=== PATIENT | female | born 1995 | race Two or more races ===

== ENCOUNTER 2016-12-22 14:11 | Emergency (ER) | payer OTHER ==
[2016-12-22 14:26] VITALS: BP 110/66; PULSE 99; RESP 18; TEMP 98.6; O2SAT 99
[2016-12-22] MEDS ORDERED: predniSONE 20 MG TAB PO ONE (14:39)
[2016-12-22] MEDS ORDERED: diphenhydrAMINE 25 MG CAP PO ONE (14:39)
[2016-12-22] MEDS ORDERED: FAMOTIDINE 20 MG TAB PO ONE (14:39)
--- NOTE | 2016-12-22 14:43 | EDPHY ---
H & P Stated Complaint: possible allergic rxn starting at approx 1400, no known cause Time Seen by Provider: 12/22/16 14:35 HPI/ROS: CHIEF COMPLAINT: Sudden onset diffuse itching HISTORY OF PRESENT ILLNESS: 21-year-old immunocompetent female female arrives via private vehicle complaining of sudden onset highly pruritic rash. No airway involvement, no dyspnea, dysphagia no odynophagia, no chest pain, no abdominal pain, no nausea, no vomiting. PRIMARY CARE PROVIDER: REVIEW OF SYSTEMS: A ten point review of systems was performed and is negative with the exception of the items mentioned in the HPI PAST MEDICAL & SURGICAL HISTORY: No pertinent medical or surgical history SOCIAL HISTORY: nonsmoker PHYSICAL EXAM (Prior to examination, patient consented to physical exam, hands were washed and my usual and customary physical exam procedures followed) 1) GENERAL: Well-developed, well-nourished, alert and oriented. Appears to be in no acute distress. 2) HEAD: Normocephalic, atraumatic 3) HEENT: Pupils equal, round, reactive to light bilaterally. Sclera anicteric. Nasopharynx, oropharynx, clear, no lesions. No intraoral lesions. 4) NECK: Full range of motion, no meningeal signs. 5) LUNGS: Clear auscultation bilaterally, no wheezes, no rhonchi, no retractions. 6) HEART: Regular rate and rhythm, no murmur, no heave, no gallop. 7) ABDOMEN: No guarding, no rebound, no focal tenderness, negative McBurney's, negative Martino's, negative Rovsing's, negative peritoneal sign, 8) MUSCULOSKELETAL: Moving all extremities, no focal areas of tenderness, no obvious trauma. No peripheral edema or discoloration. 9) BACK: No CVA tenderness, no midline vertebral tenderness, no fluctuance, no step-off, no obvious trauma, no visual or palpable abnormality. 10) SKIN: Diffuse salmon colored raised urticarial appearing lesions. DIFFERENTIAL DIAGNOSIS: in no particular include but limited to urticaria, anaphylaxis, contact dermatitis - Personal History LMP (Females 10-55): Over 28 Days Ago Current Tetanus/Diphtheria Vaccine: Yes Tetanus Vaccine Date: less than 5 years - Medical/Surgical History Hx Asthma: No Hx Chronic Respiratory Disease: No Hx Diabetes: No Hx Cardiac Disease: No Hx Renal Disease: No Hx Cirrhosis: No Hx Alcoholism: No Hx HIV/AIDS: No Hx Splenectomy or Spleen Trauma: No Other PMH: no PSH or PMH - Social History Smoking Status: Never smoked Constitutional: Initial Vital Signs Temperature (C) 37 C 12/22/16 14:23 Heart Rate 99 12/22/16 14:23 Respiratory Rate 18 12/22/16 14:23 Blood Pressure 110/66 12/22/16 14:23 O2 Sat (%) 99 12/22/16 14:23 O2 Delivery Mode Room Air Allergies/Adverse Reactions: No Known Allergies Allergy (Unverified 12/22/16 14:23) Home Medications: Medication Instructions Recorded NK [No Known Home Meds] 12/22/16 Medical Decision Making ED Course/Re-evaluation: I think the patient's symptoms are more likely secondary to acute urticaria. Doubt anaphylaxis. Doubt contact dermatitis. In the emergency department she has been given oral medications, observed for a period of time. I do not think that epinephrine is currently indicated. She has been given usual and customary urticaria precautions and instructions.Care of patient under supervision of secondary supervising physician Dr Geiger . Departure - Departure Disposition: Home, Routine, Self-Care Clinical Impression: Urticaria Condition: Good Instructions: Urticaria (ED) Additional Instructions: return to the emergency department if you develop difficulty breathing, swallowing or any other symptoms that concern you Referrals: [facility],. [Clinic] - 1-2 days without fail
== END 2016-12-22 14:51 | disposition home or self-care (01) ==
DX: L50.9 Urticaria, unspecified (principal)